=== PATIENT | female | born 1965 | race African-American/Black ===

== ENCOUNTER 2018-09-07 00:05 | Emergency (ER) | payer SELFPAY ==
[~2018-09-07] VITALS: Ht 162.6 cm; Wt 87.0 kg
[~2018-09-07 00:05] MED LIST: PALI1.5T PO
[2018-09-07 00:10] VITALS: BP 109/74
--- NOTE | 2018-09-07 01:40 | NUR ---
PT MEDICATED PER EMAR FOR PAIN. FSBS 325. ERP AWARE. ORDERS RECEIVED FOR PO FLUIDS. PT REFUSING, DESPITE EDUCATION.
[2018-09-07] MEDS ORDERED: ACETAMINOPHEN 500 MG TABLET ONE (01:41)
[2018-09-07] MEDS ORDERED: ACETAMINOPHEN 500 MG TABLET PO ONE (02:00)
[2018-09-07 02:38] LABS: BASOPHILS # (AUTO) 0.04 x10^3/uL (0-0.1); BASOPHILS % (AUTO) 1 % (0-1); EOSINOPHILS % (AUTO) 4 % (1-7); LYMPHOCYTES # (AUTO) 2.17 x10^3/uL (1-3.4); LYMPHOCYTES % (AUTO) 28 % (22-44); MD NO; MEAN CORPUSCULAR HEMOGLOBIN 29.1 pg (27.0-34.8); MEAN CORPUSCULAR HGB CONC 33.3 g/dL (32.4-35.8); MEAN CORPUSCULAR VOLUME 87.6 fL (80-100); MEAN PLATELET VOLUME 8.1 fL (7.4-10.4); MONOCYTES # (AUTO) 0.49 x10^3/uL (0.2-0.8); MONOCYTES % (AUTO) 6 % (2-9); NEUTROPHILS # (AUTO) 4.75 x10^3/uL (1.8-6.8); NEUTROPHILS % (AUTO) 61 % (42-75); PLATELET COUNT 253 x10^3/uL (130-400); RED BLOOD COUNT 4.27 x10^6/uL (3.82-5.3); RED CELL DISTRIBUTION WIDTH 14.1 % (9.6-15.2)
[2018-09-07 02:51] LABS: ALBUMIN 3.5 g/dL (3.4-5.0); ANION GAP 7 mmol/L (5-15); CALCIUM 8.3 mg/dL (8.5-10.1); CHLORIDE 104 mmol/L (98-107)
[2018-09-07 02:54] LABS: ALANINE AMINOTRANSFERASE 22 U/L (12-78); ALKALINE PHOSPHATASE 85 U/L (45-117); BILIRUBIN,TOTAL 0.9 mg/dL (0.2-1.0); CREATININE 1.64 mg/dL (0.55-1.02); TOTAL PROTEIN 7.7 g/dL (6.4-8.2)
--- NOTE | 2018-09-07 02:55 | NUR ---
REPORT TO [facility] COMBS
--- NOTE | 2018-09-07 03:14 | NUR ---
Results in, pt cleared for discharge. Pt ambulating well without assistance, d/c'd in wheelchair per pt request. Taxi voucher provided.
== END 2018-09-07 03:17 | disposition home or self-care (01) ==
LOC: ED 01:26
DX: S39.012A Strain of muscle, fascia and tendon of lower back, initial encounter (principal); E11.65 Type 2 diabetes mellitus with hyperglycemia; F17.210 Nicotine dependence, cigarettes, uncomplicated; X58.XXXA Exposure to other specified factors, initial encounter; Y93.01 Activity, walking, marching and hiking; Y92.89 Other specified places as the place of occurrence of the external cause; Y99.8 Other external cause status
CPT/HCPCS: 72110; 80053; 82962; 85025; 99284

== ENCOUNTER 2019-10-25 04:10 | Emergency (ER) | payer MEDICAID ==
[~2019-10-25] VITALS: Ht 165.1 cm; Wt 81.0 kg
--- NOTE | 2019-10-25 04:19 | NUR ---
Pt very agitated and refusing this RN to be in room, to obtain vitals, or to provide information. Pt refused registration from applying pt identification room. Pt screaming "i don't need you, get out, don't come near me"
--- NOTE | 2019-10-25 04:49 | NUR ---
pt medicated per eMAR, security and chargemaster specialist at bedside to assist
[2019-10-25] MEDS ORDERED: ZIPRASIDONE 20 MG INJ IM ONE (05:00)
--- NOTE | 2019-10-25 05:26 | NUR ---
Pt resting and appears comfortable in [facility] at this time, pt drowsy but allowing RN to obtain vitals
[2019-10-25 05:56] LABS: BASOPHILS # (AUTO) 0.04 x10^3/uL (0-0.1); BASOPHILS % (AUTO) 1 % (0-1); EOSINOPHILS # (AUTO) 0.69 x10^3/uL (0-0.4); EOSINOPHILS % (AUTO) 10 % (1-7); LYMPHOCYTES # (AUTO) 3.21 x10^3/uL (1-3.4); LYMPHOCYTES % (AUTO) 46 % (22-44); MD NO; MEAN CORPUSCULAR HEMOGLOBIN 28.8 pg (27.0-34.8); MEAN CORPUSCULAR HGB CONC 32.8 g/dL (32.4-35.8); MEAN CORPUSCULAR VOLUME 87.8 fL (80-100); MEAN PLATELET VOLUME 8.8 fL (7.4-10.4); MONOCYTES # (AUTO) 0.33 x10^3/uL (0.2-0.8); MONOCYTES % (AUTO) 5 % (2-9); NEUTROPHILS # (AUTO) 2.66 x10^3/uL (1.8-6.8); NEUTROPHILS % (AUTO) 38 % (42-75); PLATELET COUNT 272 x10^3/uL (130-400); RED BLOOD COUNT 4.35 x10^6/uL (3.82-5.3); RED CELL DISTRIBUTION WIDTH 15.9 % (9.6-15.2)
[2019-10-25 05:59] LABS: ALANINE AMINOTRANSFERASE 13 U/L (12-78); ALBUMIN 2.8 g/dL (3.4-5.0); ANION GAP 4 mmol/L (5-15); CALCIUM 7.8 mg/dL (8.5-10.1); CHLORIDE 110 mmol/L (98-107); CREATININE 0.78 mg/dL (0.55-1.02); SALICYLATE LEVEL 2.9 mg/dL (2.8-20.0)
[2019-10-25 06:01] LABS: ALKALINE PHOSPHATASE 99 U/L (45-117); BILIRUBIN,TOTAL 0.3 mg/dL (0.2-1.0)
--- NOTE | 2019-10-25 06:30 | NUR ---
Pt continues to rest in bed with eyes closed, breathing equal and unlabored, NADN
[2019-10-25 07:13] VITALS: BP 134/88
--- NOTE | 2019-10-25 07:14 | NUR ---
REPROT RECEIVED FROM CHANDLER DE LA TORRE. THIS IS A 53 YO F BIB EMS W/ C/O PSYCHOTIC BEHAVIOR. PT WAS COMBATIVE AND DELUSION UPON ARRIVAL. GIVEN GEODON W/ DESIRED EFFECT. PT IS NOW SLEEPING ON GURNEY W/ SIDE RAILS UPX2 AND CALL LIGHT IN REACH. STILL NEED URINE SAMPLE. IMPREGNATOR AND DRIER AWARE NO SIITER PRESENT AT BEDSIDE. VSS, NADN. WILL CONTINUE TO MONITOR.
--- NOTE | 2019-10-25 08:19 | NUR ---
PT SLEEPING ON GURNEY, CHEST RISE AND FALL OBSERVED. RESP EVEN AND UNLABORED, NADN.
--- NOTE | 2019-10-25 09:21 | NUR ---
REPORT FROM ROSA DE LA TORRE. PT RESTING ON GURNEY AT THIS TIME, VISIBLE CHEST RISE AND FALL NOTED. SITTER IN PLACE
--- NOTE | 2019-10-25 10:43 | NUR ---
ERPROVIDER IN TO EVAL PT, PT AWAKENS, DROWSY THEN BEGINGS TO YELL AT PROVIDER TO GET OUT OF RM, PT THEN COVERS HERSELF WITH BLANKET. AWAITING PSYCH EVAL.
--- NOTE | 2019-10-25 11:27 | NUR ---
ATTEMPTED TO OBTAIN UA SAMPLE FROM PT, PT STATES SHE IS "TOO WEAK" PT STATES SHE "NEEDS TO EAT SOME FOOD FIRST" MEAL TRAY ORDERED
--- NOTE | 2019-10-25 11:57 | NUR ---
PT ASSISTED TO BR WITH 1PA. PT UNSTEADY, STATES "DONT TOUCH ME" THEN REACHES FOR THIS RNS ARM FOR ASSISTANCE. PT BACK TO [facility] AT THIS TIME. UDS COLLECTED AND SENT TO LAB
[2019-10-25 12:21] LABS: BARBITURATE SCREEN, URINE Negative (Negative); CANNABINOID SCREEN, URINE Negative (Negative); COCAINE SCREEN, URINE Negative (Negative); METHADONE SCREEN, URINE Negative (Negative)
[2019-10-25 12:40] LABS: AMPHETAMINE SCREEN, URINE Negative (Negative); BENZODIAZEPINE SCREEN, URINE Negative (Negative); OPIATE SCREEN, URINE Negative (Negative)
--- NOTE | 2019-10-25 12:57 | NUR ---
PT NOT PARTICIPATING WITH PADMINI WIGGINS. PT CONTINUES TO FALL ASLEEP. RESEARCH PHARMACIST TO COME BACK TO EVAL LATER
--- NOTE | 2019-10-25 14:15 | NUR ---
MEAL PROVIDED, SAFETY PRECAUTIONS IN PLACE
--- NOTE | 2019-10-25 15:45 | NUR ---
PSYCH AT BEDSIDE FOR EVALUATION.
--- NOTE | 2019-10-25 16:23 | NUR ---
DC INSTRUCTIONS REVIEWED
== END 2019-10-25 16:37 | disposition home or self-care (01) ==
LOC: ED 14:46
DX: F25.9 Schizoaffective disorder, unspecified (principal); R73.9 Hyperglycemia, unspecified; F41.9 Anxiety disorder, unspecified; R45.1 Restlessness and agitation; F17.210 Nicotine dependence, cigarettes, uncomplicated
CPT/HCPCS: 36415; 80053; 80307; 85025; 96372; 99284; J3486

== ENCOUNTER 2019-12-07 17:49 | Inpatient (IN) | payer MEDICAID ==
[~2019-12-07] VITALS: Ht 162.6 cm; Wt 76.3 kg
[2019-12-07] MEDS ORDERED: POLYETHYLENE GLYCOL 17 GM PACKET PO PRN (19:00)
[2019-12-07] MEDS ORDERED: ACETAMINOPHEN 325 MG TABLET PO PRN (19:00)
[2019-12-07] MEDS ORDERED: DOCUSATE 100 MG CAPSULE PO PRN (19:00)
[2019-12-07] MEDS ORDERED: ONDANSETRON ODT 4 MG PO PRN (19:00)
[2019-12-07 21:26] VITALS: BP 142/95
[2019-12-07 22:03] VITALS: BP 142/95
[2019-12-07] MEDS: PLEASE ENTER HEIGHT AND WEIGHT MC SCH (22:38)
[2019-12-08] MEDS: PLEASE ENTER HEIGHT AND WEIGHT MC SCH (06:16)
[2019-12-08 06:18] LABS: BASOPHILS # (AUTO) 0.01 x10^3/uL (0-0.1); BASOPHILS % (AUTO) 0 % (0-1); EOSINOPHILS # (AUTO) 0.31 x10^3/uL (0-0.4); EOSINOPHILS % (AUTO) 6 % (1-7); LYMPHOCYTES # (AUTO) 2.41 x10^3/uL (1-3.4); LYMPHOCYTES % (AUTO) 48 % (22-44); MD NO; MEAN CORPUSCULAR HEMOGLOBIN 28.3 pg (27.0-34.8); MEAN CORPUSCULAR HGB CONC 32.9 g/dL (32.4-35.8); MEAN PLATELET VOLUME 8.8 fL (7.4-10.4); MONOCYTES # (AUTO) 0.26 x10^3/uL (0.2-0.8); MONOCYTES % (AUTO) 5 % (2-9); NEUTROPHILS # (AUTO) 2.06 x10^3/uL (1.8-6.8); NEUTROPHILS % (AUTO) 41 % (42-75); PLATELET COUNT 235 x10^3/uL (130-400); RED BLOOD COUNT 4.21 x10^6/uL (3.82-5.3); RED CELL DISTRIBUTION WIDTH 14.7 % (9.6-15.2)
[2019-12-08 06:24] LABS: ANION GAP 7 mmol/L (5-15); CALCIUM 8.9 mg/dL (8.5-10.1); CHLORIDE 108 mmol/L (98-107); CREATININE 0.83 mg/dL (0.55-1.02)
[2019-12-08 06:55] LABS: CHOL/HDL RATIO 3.8; FREE T4 (FREE THYROXINE) 1.06 ng/dL (0.76-1.46); LDL/HDL RATIO 1.9 (0.5-3.0)
[2019-12-08 07:41] VITALS: BP 99/66
[2019-12-08] MEDS ORDERED: DEXTROSE 4 GM TAB.CHEW PO PRN (08:00)
[2019-12-08] MEDS ORDERED: DEXTROSE 50%, 50ML SYRINGE IVPush PRN (08:00)
[2019-12-08] MEDS ORDERED: GLUCAGON 1 MG IM PRN (08:00)
[2019-12-08] MEDS: metFORMIN 500 MG TABLET PO SCH ×2 (08:48→17:15)
[2019-12-08] MEDS ORDERED: SODIUM CHLORIDE FLUSH 10ML SYR IVF SCH (09:00)
[2019-12-08 11:42] LABS: MICROSCOPIC NOT IND
[2019-12-08] MEDS: INSULIN LISPRO 100 UNITS/ML, PEN SQ-INSULIN SCH ×3 (12:10→19:56)
[2019-12-08] MEDS: PALIPERIDONE 3 MG TAB.ER.24 PO SCH (12:10)
[2019-12-09 07:03] VITALS: BP 143/81
[2019-12-09] MEDS: INSULIN LISPRO 100 UNITS/ML, PEN SQ-INSULIN SCH ×4 (07:47→19:55)
[2019-12-09] MEDS: metFORMIN 500 MG TABLET PO SCH ×2 (08:21→16:37)
[2019-12-09] MEDS: PALIPERIDONE 3 MG TAB.ER.24 PO SCH (08:21)
[2019-12-09 19:09] VITALS: BP 137/88
[2019-12-10 07:29] VITALS: BP 143/88
[2019-12-10] MEDS: metFORMIN 500 MG TABLET PO SCH (08:12)
[2019-12-10] MEDS: PALIPERIDONE 3 MG TAB.ER.24 PO SCH (08:12)
[2019-12-10] MEDS: INSULIN LISPRO 100 UNITS/ML, PEN SQ-INSULIN SCH ×2 (08:14→12:17)
[2019-12-10] MEDS ORDERED: PALI3TAB11 PO (11:26)
[2019-12-10] MEDS ORDERED: HYDR-826 PO (11:26)
[2019-12-10] MEDS ORDERED: METF500T PO (11:26)
== END 2019-12-10 12:45 | disposition home or self-care (01) | DRG 750 ==
LOC: 3E 20:40
PROVIDERS: ADMIT Psychiatry & Neurology Psychosomatic Medicine; ATTEND Psychiatry & Neurology Psychosomatic Medicine
DX: F20.0 Paranoid schizophrenia (principal); E11.9 Type 2 diabetes mellitus without complications; Z59.0 Homelessness
CPT/HCPCS: 36415; 71045; 80048; 80061; 81003; 82607; 82962; 83036; 84439; 84443; 85025; 93005; J1815; Q0177

== ENCOUNTER 2020-04-16 23:01 | Emergency (ER) | payer MEDICAID ==
[~2020-04-16] VITALS: Ht 162.6 cm; Wt 76.0 kg
[~2020-04-16 23:01] MED LIST changes: +HYDR-826 PO; +METF500T PO; +PALI3TAB11 PO
[2020-04-16 23:10] VITALS: BP 117/77
--- NOTE | 2020-04-16 23:34 | NUR ---
pt to room from lobby
== END 2020-04-17 01:14 | disposition home or self-care (01) ==
LOC: ED 23:30
DX: M25.551 Pain in right hip (principal); G89.29 Other chronic pain; Z72.9 Problem related to lifestyle, unspecified; F17.200 Nicotine dependence, unspecified, uncomplicated
CPT/HCPCS: 99283